=== PATIENT | male | born 1985 | race Caucasian/White ===

== ENCOUNTER 2017-07-12 02:33 | Observation (INO) | payer SELFPAY ==
[~2017-07-12] VITALS: Ht 177.8 cm; Wt 78.0 kg
[2017-07-12 02:40] VITALS: BP 156/87; PULSE 88; RESP 17; TEMP 98.5; O2SAT 97
--- NOTE | 2017-07-12 03:06 | PD ---
HPI Chief Complaint: Chest Pain Time Seen by Provider: 02:43 Travel History International Travel<30 days: No Contact w/Intl Traveler<30days: No Traveled to known affect area: No History of Present Illness HPI The patient is a 31 year old male who presents to the [facility] emergency department with a history of chest pain in the center of his chest that began earlier this evening and lasted for a couple of minutes at a time. It has occurred 3x. He reports having associated shortness of breath. It radiated to the left breast. He had associated diaphoresis. He denies having any nausea or vomiting. He denies having any chest pain with usual activities. He reports that he was under stress he reports having a prior history of myocardial infarction 26 years of age. He denies taking an aspirin daily. He denies having a primary care physician. He denies any known history of hypertension, hyperlipidemia or diabetes he denies having any prior history of DVT or PE. The patient reports that he did have some indigestion earlier today. He denies having problems with indigestion regularly. He reports that his last stress test was at 26 years of age. He denies having any known recent fevers, cough or congestion, neck pain, abdominal pain, vomiting, diarrhea, urinary symptoms, or neurologic symptoms. [facility] Past Medical History Narrative Medical The patient's past medical history is significant for a reported history of myocardial infarction in 26 years of age, asthma, headaches. PCP: None. Cardiovascular Problems: Yes Myocardial Infarction: Yes Past Surgical History Narrative Surgical The patient's past surgical history is significant for appendectomy, cyst removal from [facility]. Surgical History: Unable to Obtain Appendectomy: Yes Social History Alcohol Use: Yes (occasionally) Tobacco Use: Yes (dip) Substance Use: Yes (thc) Allergies-Medications (Allergen,Severity, Reaction): Coded Allergies: No Known Allergies (Unverified , 07/12/17) Narrative Medication None. Review of Systems Except as stated in HPI: all other systems reviewed are Neg General / Constitutional: No: Fever Eyes: No: Visual changes HENT: Positive: Headaches, No: Rhinorrhea, Congestion, Neck Stiffness, Neck Pain Cardiovascular: Positive: Chest Pain or Discomfort, Dyspnea on exertion Respiratory: No: Shortness of Breath Gastrointestinal: No: Nausea, Vomiting, Diarrhea, Abdominal Pain Genitourinary: No: Dysuria Musculoskeletal: No: Pain Skin: No Rash Neurologic: No: Weakness, Focal Abnormalities, Change in Mentation, Slurred Speech, Sensory Disturbance Psychiatric: No: Depression Endocrine: No: Polydipsia Hematologic/Lymphatic: No: Easy Bruising Physical Exam Narrative General: The patient is a well-developed well-nourished male in no acute distress. Head and Neck exam: Head is normocephalic atraumatic. Eyes: EOMI, pupils are equal round and reactive to light. Nose: Midline septum with pink mucous membranes Mouth: Dentition unremarkable. Moist mucus membranes. Posterior oropharynx is not erythematous. No tonsillar hypertrophy. Uvula midline. Airway patent. Neck: No palpable lymphadenopathy. No nuchal rigidity. No thyromegaly. Cardiovascular: Regular rate and rhythm without murmurs, gallops, or rubs. No pulse deficit to the extremities on simultaneous auscultation and palpation of his radial artery. Lungs: Clear to auscultation bilaterally. No wheezes, rhonchi, or rales. Abdomen: Soft, without tenderness to palpation in all 4 quadrants of the abdomen. No guarding, rebound, or rigidity. normal bowel sounds are audible. No tenderness on palpation of McBurney's point. Negative Millan sign. Extremities: No clubbing, cyanosis, or edema. 2+ pulses in all 4 extremities. No calf tenderness on palpation Back: No spinous process tenderness to palpation. No costovertebral angle tenderness to palpation. Neurologic Exam: Grossly nonfocal. Skin Exam: No rash noted. Intact skin that is warm and dry. Data Data Last Documented VS Vital Signs Date Time Temp Pulse Resp B/P (MAP) Pulse Ox O2 Delivery O2 Flow Rate FiO2 07/12/17 03:53 Room Air 07/12/17 02:47 88 97 07/12/17 02:40 98.5 17 156/87 (110) Orders Orders Electrocardiogram (07/12/17 02:46) B-Type Natriuretic Peptide (07/12/17 02:46) Ckmb (Isoenzyme) Profile (07/12/17 02:46) Complete Blood Count With Diff (07/12/17 02:46) Comprehensive Metabolic Panel (07/12/17 02:46) D-Dimer (07/12/17 02:46) Magnesium (Mg) (07/12/17 02:46) Prothrombin Time / Inr (Pt) (07/12/17 02:46) Act Partial Throm Time (Ptt) (07/12/17 02:46) Troponin I (07/12/17 02:46) Lipase (07/12/17 02:46) Chest, Single Ap (07/12/17 02:46) Ecg Monitoring (07/12/17 02:46) Bilateral Bp Monitoring (07/12/17 02:46) Iv Access Insert/Monitor (07/12/17 02:46) Oximetry (07/12/17 02:46) Oxygen Administration (07/12/17 02:46) Aspirin Chew (Aspirin Chew) (07/12/17 03:45) Nitroglycerin 2% Oint (Nitroglycerin 2% (07/12/17 03:45) CKMB (07/12/17 03:05) CKMB% (07/12/17 03:05) Admit Order (Ed Use Only) (07/12/17 04:56) Labs Laboratory Tests Test 07/12/17 03:05 07/12/17 03:30 White Blood Count 11.9 TH/MM3 Red Blood Count 5.17 MIL/MM3 Hemoglobin 15.7 GM/DL Hematocrit 45.2 % Mean Corpuscular Volume 87.4 FL Mean Corpuscular Hemoglobin 30.4 PG Mean Corpuscular Hemoglobin Concent 34.8 % Red Cell Distribution Width 13.0 % Platelet Count 273 TH/MM3 Mean Platelet Volume 9.0 FL Neutrophils (%) (Auto) 70.4 % Lymphocytes (%) (Auto) 22.0 % Monocytes (%) (Auto) 5.6 % Eosinophils (%) (Auto) 1.5 % Basophils (%) (Auto) 0.5 % Neutrophils # (Auto) 8.4 TH/MM3 Lymphocytes # (Auto) 2.6 TH/MM3 Monocytes # (Auto) 0.7 TH/MM3 Eosinophils # (Auto) 0.2 TH/MM3 Basophils # (Auto) 0.1 TH/MM3 CBC Comment DIFF FINAL Differential Comment Blood Urea Nitrogen 16 MG/DL Creatinine 0.83 MG/DL Random Glucose 76 MG/DL Total Protein 7.8 GM/DL Albumin 3.6 GM/DL Calcium Level 8.7 MG/DL Magnesium Level 2.0 MG/DL Alkaline Phosphatase 58 U/L Aspartate Amino Transf (AST/SGOT) 46 U/L Alanine Aminotransferase (ALT/SGPT) 35 U/L Total Bilirubin 0.3 MG/DL Sodium Level 140 MEQ/L Potassium Level 4.6 MEQ/L Chloride Level 107 MEQ/L Carbon Dioxide Level 24.4 MEQ/L Anion Gap 9 MEQ/L Estimat Glomerular Filtration Rate 109 ML/MIN Total Creatine Kinase 139 U/L Creatine Kinase MB 2.0 NG/ML Troponin I LESS THAN 0.02 NG/ML B-Type Natriuretic Peptide 5 PG/ML Lipase 101 U/L Prothrombin Time 10.9 SEC Prothromb Time International Ratio 1.1 RATIO Activated Partial Thromboplast Time 25.1 SEC D-Dimer Quantitative (PE/DVT) 0.32 MG/L FEU MDM Medical Decision Making Medical Screen Exam Complete: Yes Emergency Medical Condition: Yes Medical Record Reviewed: Yes Differential Diagnosis Acute coronary syndrome, versus pulmonary embolism, versus pneumothorax, versus anxiety disorder, versus acid reflux Narrative Course During the course of the patient's emergency department visit, the patient's history, examination, and differential diagnosis were reviewed with the patient. The patient was placed on a storyboard artist with oximetry and frequent blood pressure monitoring. The patient had IV access obtained and blood work sent for analysis. The patient had an EKG done on arrival. The patient's EKG reveals a sinus rhythm heart rate of 70, QRS duration 92 ms, QTC [address] segment elevation. T waves are inverted in lead III, V1 The patient was initially provided aspirin 324 mg p.o. 1. Nitroglycerin 1 inch the chest wall. The patient's laboratory studies were reviewed and remarkable for 07/12/17 03:05 Total Protein 7.8, Albumin 3.6, Calcium Level 8.7, Magnesium Level 2.0, Alkaline Phosphatase 58, Aspartate Amino Transf (AST/SGOT) 46 H, Alanine Aminotransferase (ALT/SGPT) 35, Total Bilirubin 0.3, cardiac enzymes within normal limits, BNP is 5, lipase 101. PTT within normal limits, d-dimer is less than 0.5, decreasing likelihood of pulmonary embolism is factors. Radiology studies were reviewed and remarkable for chest x-ray that shows no acute cardiopulmonary disease. Given the patient's reported history of myocardial infarction in 26 years of age without any significant follow-up since then, the patient will be admitted to the chest pain center for rule out serial cardiac enzyme protocol followed by consideration of stress testing. The patient's results were discussed with the patient, including the plan of care. I explained that further testing and/ or monitoring is indicated based on the patient's history, examination, and/ or laboratory findings. Therefore, I recommended admission for additional evaluation. The patient expressed understanding and was agreeable with this plan. The patient was admitted to the hospital in stable condition and sent to a bed under the care of the chest pain center. Diagnosis Primary Impression: Chest pain, rule out acute myocardial infarction Admitting Information Admitting Physician Requests: Isabella Pascual MD July 12, 2017 03:06
[2017-07-12 03:10] LABS: AUTOMATED NEUTROPHIL # 8.4 TH/MM3 (1.8-7.7); BASOPHIL # 0.1 TH/MM3 (0-0.2); BASOPHIL % 0.5 % (0.0-2.0); EOSINOPHIL # 0.2 TH/MM3 (0-0.4); EOSINOPHIL % 1.5 % (0.0-4.0); HEMATOCRIT 45.2 % (39.0-51.0); HEMOGLOBIN 15.7 GM/DL (13.0-17.0); LYMPHOCYTE # 2.6 TH/MM3 (1.0-4.8); MEAN CELL VOLUME 87.4 FL (80.0-100.0); MEAN CORPUSCULAR HEMOGLOBIN 30.4 PG (27.0-34.0); MEAN CORPUSCULAR HGB CONC 34.8 % (32.0-36.0); MONO % 5.6 % (0.0-8.0); MONOCYTE # 0.7 TH/MM3 (0-0.9); NEUT % 70.4 % (16.0-70.0); PLATELET COUNT 273 TH/MM3 (150-450); RED BLOOD COUNT 5.17 MIL/MM3 (4.50-5.90); WHITE BLOOD COUNT 11.9 TH/MM3 (4.0-11.0)
--- NOTE | 2017-07-12 03:10 | RADRPT ---
EXAM DATE/TIME: 07/12/2017 02:54 [place] COMPARISON: No previous studies available for comparison. INDICATIONS : Chest pain. MEDICAL HISTORY : None. SURGICAL HISTORY : None. ENCOUNTER: Initial ACUITY: 1 day PAIN SCORE: 5/10 LOCATION: Bilateral chest FINDINGS: A single view of the chest demonstrates the lungs to be symmetrically aerated without evidence of mas s, infiltrate or effusion. The cardiomediastinal contours are unremarkable. Osseous structures are intact. CONCLUSION: No acute disease. Osman Fischer MD on July 12, 2017 at 3:05 Board Certified Radiologist. This report was verified electronically.
[2017-07-12 03:37] LABS: ALBUMIN 3.6 GM/DL (3.4-5.0); ALT (GPT) 35 U/L (12-78); AST (GOT) 46 U/L (15-37); BICARBONATE 24.4 MEQ/L (21.0-32.0); BLOOD UREA NITROGEN 16 MG/DL (7-18); CALCIUM 8.7 MG/DL (8.5-10.1); CHLORIDE 107 MEQ/L (98-107); CREATININE 0.83 MG/DL (0.60-1.30); GLOMERULAR FILTRATION RATE 109 ML/MIN (>89); GLUCOSE,RANDOM 76 MG/DL (74-106); SODIUM (NA) 140 MEQ/L (136-145)
[2017-07-12 03:39] LABS: ALKALINE PHOSPHATASE 58 U/L (45-117); TOTAL BILIRUBIN ADULT 0.3 MG/DL (0.2-1.0); TOTAL PROTEIN 7.8 GM/DL (6.4-8.2); TROPONIN I LESS THAN 0.02 NG/ML (0.02-0.05)
[2017-07-12] MEDS ORDERED: ASPIRIN 81 MG CHEW TAB CHEW ONE (03:45)
[2017-07-12] MEDS ORDERED: NITROGLYCERIN 2% OINT 1 GM PACKET TOPICAL ONE (03:45)
[2017-07-12 03:49] LABS: INTERNATIONAL NORMALIZED RATIO 1.1 RATIO; PROTHROMBIN TIME - PATIENT 10.9 SEC (9.8-11.6)
[2017-07-12 03:56] LABS: D-DIMER 0.32 MG/L FEU (0.00-0.50)
[2017-07-12] MEDS ORDERED: SODIUM CHLORIDE 0.9% FLUSH 10 ML FLUSH IV FLUSH PRN (05:45)
[2017-07-12] MEDS ORDERED: ACETAMINOPHEN 500 MG CPLT PO PRN ×2 (05:45→07:45)
[2017-07-12 06:05] VITALS: O2SAT 97
[2017-07-12 06:14] VITALS: BP 131/83; PULSE 85; RESP 16; O2SAT 95
[2017-07-12 06:24] VITALS: BP 123/79; PULSE 80; RESP 17; TEMP 97.9; O2SAT 96
[2017-07-12 06:38] LABS: TROPONIN I LESS THAN 0.02 NG/ML (0.02-0.05)
[2017-07-12 07:11] VITALS: O2SAT 96
--- NOTE | 2017-07-12 07:41 | HHI.HP ---
HPI Primary Care Physician No Primary Care Physician Chief Complaint Chest pain History of Present Illness 31-year-old male without any significant history presents the emergency room for further evaluation of chest pain. Onset last evening. Location substernal. Characterized as "extreme pinching." Duration 3-4 minutes. Radiation to left anterior chest. No associated symptoms of nausea, vomiting, diaphoresis. Associated symptoms of "slight shortness of breath." No no precipitating or relieving factors. Endorses similar chest discomfort at age 26, which he completed an exercise treadmill test reported to be normal. Currently chest pain free. Complains of headache due to nitro paste administered in ER. Review of Systems General: No fatigue,weakness, fever, chills, or recent illness. Has been in his general state of health. HEENT: No HUNG, no dysphasia CV: As stated above. No current CP or pressure. RESP: No SOB, cough, or wheeze. GI: No nausea, vomiting, bowel changes, diarrhea, constipation, pain, or distention. No change in appetite, no unintentional weight gain or weight loss : No dysuria, urgency, or frequency EXT: No lower leg edema, no paraesthesias MS: No discomfort, injury, or change in ROM NEURO: No difficulty with balance, LOC, or motor/sensory deficits PSYCH: Current situational stress, apparently his ex- has recently moved from the area with their young daughter. States he believes chest discomfort most likely caused due to anxiety and emotional response when talking with his mother yesterday about situation. No suicidal ideation SKIN: No rashes, no concerning lesions Past Family Social History Allergies: Coded Allergies: No Known Allergies (Unverified , 07/12/17) Past Medical History None Past Surgical History Appendectomy Reported Medications None Active Ordered Medications Current Medications Medications (Trade) Dose Ordered Sig/[place] Route Start Time Stop Time Status Last Admin (NS Flush) 2 ml UNSCH PRN IV FLUSH 07/12/17 05:45 (NS Flush) 2 ml BID IV FLUSH 07/12/17 09:00 (Tylenol) 500 mg Q4H PRN PO 07/12/17 05:45 07/12/17 06:45 Family History Noncontributory for early onset cardiovascular disease. Mother has hypertension. Social History No known diabetes, hyperlipidemia, or hypertension. Denies smoking cigarettes. Chews smokeless tobacco and endorses smoking marijuana. Past cardiac testing Exercise stress test age 26 reported to be unremarkable. Physical Exam Vital Signs Vital Signs Date Time Temp Pulse Resp B/P (MAP) Pulse Ox O2 Delivery O2 Flow Rate FiO2 07/12/17 07:11 96 21 07/12/17 06:24 97.9 80 17 123/79 (94) 96 07/12/17 06:15 07/12/17 06:14 85 16 131/83 (99) 95 Room Air 07/12/17 06:05 97 07/12/17 03:53 Room Air 07/12/17 02:47 88 97 Room Air 07/12/17 02:40 98.5 88 17 156/87 (110) 97 Physical Exam GENERAL: Alert WN, WD, NAD, moderately obese, male HEAD: NC, AT EYES: Sclera clear, conjunctiva without injection, pupils equal and round ENT: Mucous membranes pink and moist CV: RRR, without murmur, rub, gallop, no JVD, S1-S2 no S3-S4. RESP: Clear lungs throughout bilateral, no crackles, wheeze, rhonchi, symmetrical chest rise, nonlabored, able to speak in full sentences ABD: Soft, NT, ND, no masses, positive bowel tones, obese EXT: Pulses +2x4, no dependent edema MS: Normal tone x4 extremities, nontender, no obvious deformities, full range of motion NEURO: CN II through CN XII grossly intact, motor strength 5/5, gait WNL PSYCH: A+O x3, flat affect, appropriate speech, mood, insight and judgment SKIN: Normal turgor, normal texture, no lesions, no rashes, brisk cap refill, even hair distribution, multiple tattoos, bilateral areola piercing Laboratory Laboratory Tests Test 07/12/17 03:05 07/12/17 03:30 07/12/17 06:05 White Blood Count 11.9 Red Blood Count 5.17 Hemoglobin 15.7 Hematocrit 45.2 Mean Corpuscular Volume 87.4 Mean Corpuscular Hemoglobin 30.4 Mean Corpuscular Hemoglobin Concent 34.8 Red Cell Distribution Width 13.0 Platelet Count 273 Mean Platelet Volume 9.0 Neutrophils (%) (Auto) 70.4 Lymphocytes (%) (Auto) 22.0 Monocytes (%) (Auto) 5.6 Eosinophils (%) (Auto) 1.5 Basophils (%) (Auto) 0.5 Neutrophils # (Auto) 8.4 Lymphocytes # (Auto) 2.6 Monocytes # (Auto) 0.7 Eosinophils # (Auto) 0.2 Basophils # (Auto) 0.1 CBC Comment DIFF FINAL Differential Comment Blood Urea Nitrogen 16 Creatinine 0.83 Random Glucose 76 Total Protein 7.8 Albumin 3.6 Calcium Level 8.7 Magnesium Level 2.0 Alkaline Phosphatase 58 Aspartate Amino Transf (AST/SGOT) 46 Alanine Aminotransferase (ALT/SGPT) 35 Total Bilirubin 0.3 Sodium Level 140 Potassium Level 4.6 Chloride Level 107 Carbon Dioxide Level 24.4 Anion Gap 9 Estimat Glomerular Filtration Rate 109 Total Creatine Kinase 139 79 Creatine Kinase MB 2.0 Troponin I LESS THAN 0.02 LESS THAN 0.02 B-Type Natriuretic Peptide 5 Lipase 101 Prothrombin Time 10.9 Prothromb Time International Ratio 1.1 Activated Partial Thromboplast Time 25.1 D-Dimer Quantitative (PE/DVT) 0.32 Result Diagram: 07/12/17 0305 07/12/17 0305 Imaging Last 48 hours Impressions Chest X-Ray 07/12/17 0246 Signed Impressions: Service Date/Time: Wednesday, July 12, 2017 02:54 - CONCLUSION: No acute disease. Osman Fischer MD Course EKG Normal sinus rhythm, normal axis, no ST-T segment changes Caprini VTE Risk Assessment Caprini VTE Risk Assessment: No/Low Risk (score <= 1) Caprini Risk Assessment Model Point Value = 1 Point Value = 2 Point Value = 3 Point Value = 5 Age 41-60 Minor surgery BMI > 25 kg/m2 Swollen legs Varicose veins or History of unexplained or recurrent spontaneous Oral contraceptives or hormone replacement Sepsis (< 1 month) Serious lung disease, including pneumonia (< 1 month) Abnormal pulmonary function Acute myocardial infarction Congestive heart failure (< 1 month) History of inflammatory bowel disease Medical patient at bed rest Age 61-74 Arthroscopic surgery Major open surgery (> 45 min) Laparoscopic surgery (> 45 min) Malignancy Confined to bed (> 72 hours) Immobilizing plaster cast Central venous access Age >= 75 History of VTE Family history of VTE Factor V Leiden Prothrombin [id number] Lupus anticoagulant Anticardiolipin antibodies Elevated serum homocysteine Heparin-induced thrombocytopenia Other congenital or acquired thrombophilia Stroke (< 1 month) Elective arthroplasty Hip, pelvis, or leg fracture Acute spinal cord injury (< 1 month) Prophylaxis Regimen Total Risk Factor Score Risk Level Prophylaxis Regimen 0-1 Low Early ambulation 2 Moderate Order ONE of the following: *Sequential Compression Device (SCD) *Heparin 5000 units SQ BID 3-4 Higher Order ONE of the following medications: *Heparin 5000 units SQ TID *Enoxaparin/Lovenox 40 mg SQ daily (WT < 150 kg, CrCl > 30 mL/min) *Enoxaparin/Lovenox 30 mg SQ daily (WT < 150 kg, CrCl > 10-29 mL/min) *Enoxaparin/Lovenox 30 mg SQ BID (WT < 150 kg, CrCl > 30 mL/min) AND/OR *Sequential Compression Device (SCD) 5 or more Highest Order ONE of the following medications: *Heparin 5000 units SQ TID (Preferred with Epidurals) *Enoxaparin/Lovenox 40 mg SQ daily (WT < 150 kg, CrCl > 30 mL/min) *Enoxaparin/Lovenox 30 mg SQ daily (WT < 150 kg, CrCl > 10-29 mL/min) *Enoxaparin/Lovenox 30 mg SQ BID (WT < 150 kg, CrCl > 30 mL/min) AND *Sequential Compression Device (SCD) Assessment and Plan Assessment and Plan #1 Atypical chest pain-admitted to chest pain center. Ruled out with 2 sets of EKGs, cardiac enzymes, and monitor on telemetry overnight. Seen and evaluated by Dr. Kameron Jade. Proceed with exercise stress test later this morning. If unremarkable, plans will be to discharge home with follow-up with PCP. Verbalizes understanding and agreeable plan of care. #2 Tobacco use-strongly encouraged and stressed the importance of tobacco cessation. Risks of using smokeless tobacco, including but not limited to oral cancer, esophagus cancer, gum disease, and tooth decay, reinforced. Instructed to quit use of any form of tobacco. Stephanie Hernandez July 12, 2017 07:41
[2017-07-12] MEDS ORDERED: ASPIRIN EC 81 MG TABEC PO ONE (07:45)
[2017-07-12] MEDS ORDERED: NITROGLYCERIN 0.4 MG SL 25 TABS/BTL SL PRN (07:45)
[2017-07-12] MEDS ORDERED: ONDANSETRON HCL 4 MG/2 ML VIAL IV PUSH PRN (07:45)
[2017-07-12 08:13] VITALS: BP 111/80; PULSE 69; RESP 20; TEMP 97.5; O2SAT 95
[2017-07-12] MEDS ORDERED: SODIUM CHLORIDE 0.9% FLUSH 10 ML FLUSH IV FLUSH SCH (09:00)
--- NOTE | 2017-07-12 10:11 | HHI.DCPOC ---
Discharge Care Plan Diagnosis: (1) Atypical chest pain (2) Tobacco abuse (3) Situational stress Goals to Promote Your Health * To prevent worsening of your condition and complications * To maintain your health at the optimal level Directions to Meet Your Goals Take your medications as prescribed Follow your dietary instruction Follow activity as directed Keep your appointments as scheduled Take your immunizations and boosters as scheduled If your symptoms worsen call your PCP, if no PCP go to Urgent Care Center or Emergency Room Smoking is Dangerous to Your Health. Avoid second hand smoke Call the 24-hour hour crisis hotline for domestic abuse at Stephanie Hernandez July 12, 2017 10:11
[2017-07-12] MEDS ORDERED: KETOROLAC TROMETHAMINE 30 MG/ML (IVP) VIAL IV PUSH ONE (11:00)
--- NOTE | 2017-07-12 13:52 | EKG ---
Date Performed: 07/12/2017 Time Performed: 06:00:12 PTAGE: 31 years EKG: Sinus rhythm NORMAL ECG PREVIOUS TRACING : 07/12/2017 03.14 Since previous tracing, no significant change noted DOCTOR: Kameron Jade Interpretating Date/Time 07/12/2017 13:51:49
--- NOTE | 2017-07-12 13:52 | EKG ---
Date Performed: 07/12/2017 Time Performed: 03:14:22 PTAGE: 31 years EKG: Sinus rhythm NORMAL ECG NO PREVIOUS TRACING DOCTOR: Kameron Jade Interpretating Date/Time 07/12/2017 13:51:55
--- NOTE | 2017-07-12 13:52 | EKG ---
Date Performed: 07/12/2017 Time Performed: 09:06:28 PTAGE: 31 years EKG: Sinus rhythm NORMAL ECG NO PREVIOUS TRACING DOCTOR: Kameron Jade Interpretating Date/Time 07/12/2017 13:50:34
--- NOTE | 2017-07-12 13:56 | TR ---
Date Performed: 07/12/2017 Time Performed: 09:31:00 DOCTOR: Kameron Jade DRUG LIST: CLINICAL HISTORY: CHEST PAIN REASON FOR TEST: REASON FOR ENDING: OBSERVATION: CONCLUSION: Serg protocol completed. Stopped sec to reaching target heart rate and leg fatigue. Maximum XH=178 Target HR Achieved=86.0% Maximum RM=431/78 Total Exercise Time=10:19. No reprod chest discomfort. Great exercise tolerance. One PVC noted at peak. No st t segment changes. Normal bp resp onse. Recovery quick and unremarkable. Artifact V1 during recovery. COMMENTS: Patient exercised using the Serg protocol. No electrocardiographic changes were seen to suggest ischemia. Hemodynamic response to exercise was normal. No significant arrhythmia was prese nt.
[2017-07-13] MEDS ORDERED: ASPIRIN 325 MG TAB PO SCH (09:00)
== END 2017-07-12 12:26 | disposition home or self-care (01) ==
LOC: NEPE 02:33 → NEDA 04:57 → NEPHCDU 06:09
PROVIDERS: ADMIT Internal Medicine Interventional Cardiology; ATTEND Internal Medicine Interventional Cardiology
DX: R07.89 Other chest pain (principal); R06.02 Shortness of breath; T46.3X5A Adverse effect of coronary vasodilators, initial encounter; G44.40 Drug-induced headache, not elsewhere classified, not intractable; R61 Generalized hyperhidrosis; I25.2 Old myocardial infarction; J45.909 Unspecified asthma, uncomplicated; F17.220 Nicotine dependence, chewing tobacco, uncomplicated; F12.90 Cannabis use, unspecified, uncomplicated; E66.9 Obesity, unspecified; Z82.49 Family history of ischemic heart disease and other diseases of the circulatory system
CPT/HCPCS: 71045; 80053; 82550; 82552; 83690; 83735; 83880; 84484; 85025; 85379; 85610; 85730; 93005; 93017; 99285; G0378; J1885